=== PATIENT | female | born 1950 | race Hispanic/Latino ===

== ENCOUNTER 2025-03-08 18:22 | Emergency (ER) | payer MEDICARE ==
[2025-03-08] MEDS ORDERED: Ondansetron PF 4 MG/2 ML Vial ONE (19:06)
[2025-03-08] MEDS ORDERED: Famotidine/PF 20 mg/2ml Vial ONE (19:06)
[2025-03-08 19:27] LABS: #Basophils 0.04 10x3/uL (0.0-0.2); #Eosinophils 0.10 10x3/uL (0.0-0.5); #Monocytes 0.56 10x3/uL (0.0-1.1); #Neutrophils 2.72 10x3/uL (1.5-8.4); %Basophils 0.8 % (0.0-2.0); %Eosinophils 1.9 % (0.0-6.0); %Lymphocytes 34.5 % (18.0-47.0); %Monocytes 10.7 % (0.0-10.0); %Neutrophils 51.9 % (40.0-75.0); Hematocrit 31.4 % (34.9-44.5); Hemoglobin 10.3 g/dL (12.0-15.5); Mean Corpuscular Hemoglobin 27.8 pg (27.0-33.0); Mean Corpuscular Volume 84.6 fL (81.6-98.3); Platelet Count 219 10x3/uL (150-450); Red Blood Cell (RBC) Count 3.71 10x6/uL (3.90-5.03); White Blood Cell (WBC) Count 5.24 10x3/uL (3.5-10.5)
[2025-03-08 19:47] LABS: ALT (SGPT) 18 U/L (Less than 34); AST (SGOT) 20 U/L (11-34); Albumin 4.0 g/dL (3.1-4.5); Alkaline Phosphatase 58 U/L (40-110); Anion Gap 16 mmol/L (10-20); BUN (Urea Nitrogen) 9 mg/dL (9.8-20.1); Bilirubin, Total 0.6 mg/dL (0.3-1.2); Calc. Creatinine Clearance 0 mL/min (70-130); Calcium 8.7 mg/dL (7.8-10.44); Carbon Dioxide 21 mmol/L (23-31); Chloride 97 mmol/L (98-107); Globulin 3.2 g/dL (2.4-3.5); Glucose 89 mg/dL (83-110); Lipase 43 U/L (8-78); Potassium 3.9 mmol/L (3.5-5.1); Sodium 130 mmol/L (136-145); Troponin I Less than 0.010 ng/mL (< 0.028)
== END 2025-03-08 20:34 | disposition home or self-care (01) ==
LOC: CSHERS 18:22
DX: R11.0 Nausea (principal); E87.1 Hypo-osmolality and hyponatremia; I10 Essential (primary) hypertension; E78.00 Pure hypercholesterolemia, unspecified; K21.9 Gastro-esophageal reflux disease without esophagitis; Z79.899 Other long term (current) drug therapy
CPT/HCPCS: 80053; 83690; 84484; 85025; 93005; J1308; J2405; 96374; 96375

== ENCOUNTER 2025-03-29 11:27 | Emergency (ER) | payer MEDICARE ==
[2025-03-29 12:07] LABS: #Basophils 0.03 10x3/uL (0.0-0.2); #Eosinophils 0.15 10x3/uL (0.0-0.5); #Monocytes 0.44 10x3/uL (0.0-1.1); #Neutrophils 3.20 10x3/uL (1.5-8.4); %Basophils 0.6 % (0.0-2.0); %Eosinophils 3.1 % (0.0-6.0); %Lymphocytes 21.8 % (18.0-47.0); %Monocytes 9.0 % (0.0-10.0); %Neutrophils 65.1 % (40.0-75.0); Hematocrit 32.2 % (34.9-44.5); Hemoglobin 10.6 g/dL (12.0-15.5); Mean Corpuscular Hemoglobin 28.3 pg (27.0-33.0); Mean Corpuscular Volume 85.9 fL (81.6-98.3); Platelet Count 203 10x3/uL (150-450); Red Blood Cell (RBC) Count 3.75 10x6/uL (3.90-5.03); White Blood Cell (WBC) Count 4.91 10x3/uL (3.5-10.5)
[2025-03-29 12:22] LABS: ALT (SGPT) 18 U/L (Less than 34); AST (SGOT) 20 U/L (11-34); Albumin 3.9 g/dL (3.1-4.5); Alkaline Phosphatase 62 U/L (40-110); Anion Gap 13 mmol/L (10-20); BUN (Urea Nitrogen) 8 mg/dL (9.8-20.1); Bilirubin, Total 0.6 mg/dL (0.3-1.2); Calc. Creatinine Clearance 0 mL/min (70-130); Calcium 9.0 mg/dL (7.8-10.44); Carbon Dioxide 25 mmol/L (23-31); Chloride 101 mmol/L (98-107); Globulin 2.9 g/dL (2.4-3.5); Glucose 100 mg/dL (83-110); Potassium 4.4 mmol/L (3.5-5.1); Sodium 135 mmol/L (136-145)
[2025-03-29 15:07] LABS: Glucose, Urine (Dipstick) Normal (Negative); Leukocyte Negative (Negative); Protein, Urine (Dipstick) Negative (Neg-Trace); Specific Gravity, Urine 1.005 (1.005-1.030)
[2025-03-29 15:21] LABS: CAUTI Indications for Culture Pelvic or flank pain; RBC/HPF 0-3 HPF (0-3); WBC/HPF 0-3 HPF (0-3)
[2025-03-29 15:22] LABS: Bacteria/HPF 1+ HPF (None Seen)
[2025-03-29 15:23] LABS: Urine Culture Reflex No No
== END 2025-03-29 16:00 ==
LOC: EEVIPCON 11:27 → CSHERS 11:27
DX: N20.0 Calculus of kidney (principal); I10 Essential (primary) hypertension; E78.00 Pure hypercholesterolemia, unspecified; K21.9 Gastro-esophageal reflux disease without esophagitis
CPT/HCPCS: 74176; 80053; 81001; 85025